=== PATIENT | female | born 1975 | race Caucasian/White ===

== ENCOUNTER 2018-12-13 13:52 | Emergency (ER) | payer MEDICAID ==
[~2018-12-13] VITALS: Ht 162.6 cm; Wt 113.6 kg
[2018-12-13 13:55] VITALS: Ht 162.6 cm; Wt 113.6 kg
[2018-12-13] MEDS ORDERED: ULTRAM50 MG PO (14:26)
[2018-12-13] MEDS ORDERED: CYCLOBENZAPRINE10 MG PO (14:26)
[2018-12-13 14:39] VITALS: BP 102/56
== END 2018-12-13 14:39 | disposition home or self-care (01) ==
LOC: D.ER 13:52
DX: M79.18 Myalgia, other site (principal); V49.9XXA Car occupant (driver) (passenger) injured in unspecified traffic accident, initial encounter; E78.5 Hyperlipidemia, unspecified; F32.9 Major depressive disorder, single episode, unspecified

== ENCOUNTER 2019-01-23 08:38 | Emergency (ER) | payer MEDICAID ==
[~2019-01-23] VITALS: Ht 162.6 cm; Wt 117.7 kg
[~2019-01-23 08:38] MED LIST: CYCLOBENZAPRINE10 MG PO; ULTRAM50 MG PO
[2019-01-23 08:42] VITALS: Ht 162.6 cm; Wt 117.7 kg
[2019-01-23] MEDS ORDERED: FLUTICASONE PRO16 GM NASAL (09:27)
[2019-01-23] MEDS ORDERED: AUGMENTIN 875-11 TAB PO (09:27)
[2019-01-23 09:57] VITALS: BP 106/60
== END 2019-01-23 09:47 | disposition home or self-care (01) ==
LOC: D.ER 08:38
DX: J01.90 Acute sinusitis, unspecified (principal)

== ENCOUNTER 2019-01-31 19:06 | Emergency (ER) | payer OTHER ==
[~2019-01-31] VITALS: Ht 162.6 cm; Wt 117.7 kg
[~2019-01-31 19:06] MED LIST changes: +AUGMENTIN 875-11 TAB PO; +FLUTICASONE PRO16 GM NASAL
[2019-01-31 19:13] VITALS: Ht 162.6 cm; Wt 117.7 kg
[2019-01-31] MEDS ORDERED: LAMICTAL200 M1 PO (19:16)
[2019-01-31] MEDS ORDERED: MOBIC7.5 MG PO (19:16)
[2019-01-31] MEDS ORDERED: LATUDA80 MG PO (19:17)
[2019-01-31] MEDS ORDERED: TEMAZEPAM30 MG PO (19:17)
[2019-01-31 19:46] LABS: APPEARANCE CLEAR (CLEAR); BILIRUBIN NEGATIVE (NEGATIVE); COLOR STRAW (YELLOW); GLUCOSE NEGATIVE (NEGATIVE); KETONE NEGATIVE (NEGATIVE); NITRITE NEGATIVE (NEGATIVE); PROTEIN NEGATIVE (NEGATIVE); SPECIFIC GRAVITY 1.005 (1.005-1.020); UROBILINOGEN NORMAL (NORMAL)
[2019-01-31 19:47] LABS: HCG URINE NEGATIVE (NEGATIVE)
[2019-01-31 19:52] LABS: BASOPHILS 0.1 % (0-2); EOSINOPHILS 1.3 % (0-7); HEMATOCRIT 35.5 % (36.0-48.0); HEMOGLOBIN 11.5 g/dL (12-16); LYMPHOCYTES 31.6 % (15-50); MCH 27.9 pg (26.0-34.0); MCHC 32.4 g/dL (31.0-37.0); MCV 86.2 fL (80.0-100.0); MEAN PLATELET VOLUME 8.3 fL (7.4-10.4); MONOCYTES 6.4 % (2-11); NEUTROPHILS 59.6 % (40-80); RBC 4.12 10x6/uL (4.00-5.40); RDW 13.5 % (11.5-14.5); WBC 8.3 10x3/uL (4.8-10.8)
[2019-01-31 19:56] LABS: CALC OSMOLALITY 277 mosm/kg (275-300); CALCIUM 8.8 mg/dL (8.5-10.1); CARBON DIOXIDE 24.5 mmol/L (21.0-32.0); CHLORIDE - SERUM 105 mmol/L (98-107); CREATININE - SERUM 0.8 mg/dL (0.6-1.3); GLUCOSE 109 mg/dL (74-106); POTASSIUM - SERUM 4.1 mmol/L (3.5-5.1); SODIUM 140 mmol/L (136-145); UREA NITROGEN 8 mg/dL (7-18); eGFR NON AFRICAN AMERICAN 83 mL/min (90-120)
[2019-01-31 20:02] LABS: ALBUMIN 3.1 g/dL (3.4-5.0); ALKALINE PHOSPHATASE 92 U/L (46-116); ALT (SGPT) 36 U/L (10-68); BILIRUBIN - TOTAL 0.19 mg/dL (0.2-1.3); PROTEIN - SERUM 7.2 g/dL (6.4-8.2)
[2019-01-31 20:07] LABS: PLATELET COUNT 367 10x3/uL (130-400)
--- NOTE | 2019-01-31 20:12 | NUR ---
PATIENT IN ROOM 13, FOR HAVING CHILLS, PATIENT IS NOT SUIDIDAL, HER ONE AND ONLY ATTEMPT WAS WHEN SHE WAS IN HIGH SCHOOL. SHE IS NOT SUICIDAL. SHE CAN LIST REASONS FOR LIVING. RESOURCES GIVEN TO HER, SUICIDE PREVENTION LIST GIVEN TO PATIENT.
[2019-01-31] MEDS ORDERED: GUAIFENESI100 MG/5 M PO (20:51)
[2019-01-31] MEDS ORDERED: ALBUTEROL SULF8.5 GM INH (20:51)
[2019-01-31 21:35] VITALS: BP 122/62
== END 2019-01-31 21:35 | disposition home or self-care (01) ==
LOC: D.ER 19:06
PROVIDERS: Emergency Medicine
DX: R68.83 Chills (without fever) (principal); M79.10 Myalgia, unspecified site; F31.9 Bipolar disorder, unspecified; F84.0 Autistic disorder

== ENCOUNTER 2019-03-13 06:40 | Day surgery (SDC) | payer OTHER ==
[2019-03-12 09:00] LABS: BASOPHILS 0 % (0-2); HEMATOCRIT 38.7 % (36.0-48.0); HEMOGLOBIN 12.6 g/dL (12-16); IMMATURE GRANULOCYTES 0.8 % (0-5); LYMPHOCYTES 26.4 % (15-50); MCH 27.7 pg (26.0-34.0); MCHC 32.6 g/dL (31.0-37.0); MCV 85.1 fL (80.0-100.0); MEAN PLATELET VOLUME 8.9 fL (7.4-10.4); MONOCYTES 4.5 % (2-11); NEUTROPHILS 66.3 % (40-80); PLATELET COUNT 241 10x3/uL (130-400); RBC 4.55 10x6/uL (4.00-5.40); RDW 13.9 % (11.5-14.5); WBC 6.6 10x3/uL (4.8-10.8)
[~2019-03-13] VITALS: Ht 162.6 cm; Wt 111.6 kg
[~2019-03-13 06:40] MED LIST changes: +ALBUTEROL SULF8.5 GM INH; +GUAIFENESI100 MG/5 M PO; +LAMICTAL200 M1 PO; +LATUDA80 MG PO; +MOBIC7.5 MG PO; +TEMAZEPAM30 MG PO
[2019-03-13 07:34] VITALS: BP 106/59; Ht 162.6 cm; Wt 111.6 kg
--- NOTE | 2019-03-13 12:13 | NUR ---
1032-REC'D FROM RR. AWAKE AND ALERT.DENIES PAIN.VSS.ABD SOFT NON DISTENDED. IV PATENT AT [facility] TO RIGHT WRIST.CL IN EASY REACH.SISTER AT BEDSIDE.REVIEWED DISCHARGE CRITERIA.VERBALIZED UNDERSTANDING.
--- NOTE | 2019-03-13 12:14 | NUR ---
1100-VSS.FULL LIQUID TRAY TO ROOM.REPORTS PAIN 2/10 TO ABD,DESCRIBES CRAMPING. CL IN EASY REACH
--- NOTE | 2019-03-13 12:15 | NUR ---
1130-DISCHARGE CRITERIA MET. REMOVED IV FROM RIGHT WRIST WITH CATH INTACT.DISPOSED INTO SHARPS,COVERED SITE WITH GUAZE,SECURED WITH MEDIPORE TAPE. IS CALLING SISTER FOR HER TO PICK HER UP
--- NOTE | 2019-03-13 12:16 | NUR ---
1135-REVIEWED POST OPERATIVE INSTRUCTIONS AND FOLLOW UP APPOINTMENT.VERBALIZED UNDERSTANDING. WAITING ON SISTER FOR HER RIDE HOME.VSS.
--- NOTE | 2019-03-13 12:17 | NUR ---
1200-ESCORTED OUT VIA W/C WITH SISTER AWAITING TO DRIVE HOME. DISCHARGE PAPERWORK IN HAND
--- NOTE | 2019-03-23 15:42 | OP ---
PATIENT NAME: VIVIANE JIM MEDICAL RECORD: [id number] :77 LOCATION:D.OPS ADMISSION DATE: SURGEON: NIKITA GARDUNO MD DATE OF OPERATION: 03/13/2019 PREOPERATIVE DIAGNOSES: 1. Amenorrhea. 2. Thickened endometrium by ultrasound. POSTOPERATIVE DIAGNOSES: 1. Amenorrhea. 2. Thickened endometrium by ultrasound. PROCEDURE: Hysteroscopy, dilation and curettage. SURGEON: Nikita Garduno MD ANESTHESIA: General endotracheal. INTRAVENOUS FLUIDS: Per anesthesia records. HYSTEROSCOPIC FLUID LOSS: Less than 100 cc of 0.9 normal saline. FINDINGS: Grossly external genitalia, vagina, and endometrial canal. SPECIMENS: Include endometrial curettings. ESTIMATED BLOOD LOSS: Minimal. COMPLICATIONS: None apparent. PROCEDURE IN DETAIL: The patient was taken to the operating room where general anesthesia was achieved without difficulty. The patient was then prepped and draped in normal sterile fashion in the dorsal lithotomy position in the [facility]. The vagina was prepped and draped, and the bladder was drained of approximately 150 cc of clear yellow urine. A Graves speculum was then placed in the vagina and cervix was identified and grasped on its anterior lip with a single-tooth tenaculum. At this point, the patient was dilated to approximately 4-5 mm and the hysteroscope was introduced into the cervix without resistance. The endometrial canal was then thoroughly surveyed and a #1 curette was used to perform 4 quadrants curettage for tissue sampling. Minimal bleeding was noted from the cervical os following the curettage and a single-tooth tenaculum was removed. The patient tolerated procedure well, transferred to postanesthesia recovery stable without incident. TRANSINT:[id number] Voice Confirmation ID: [id number] DOCUMENT ID: [id number] OPERATIVE REPORT [id number] VIVIANE JIM NIKITA GARDUNO MD at 1542 CC: [id number] DICTATION DATE: 03/23/19 0734 REHAB MANAGER: 03/23/[address] [facility] 03/13/19 [place] [address]
== END 2019-03-13 12:00 | disposition home or self-care (01) ==
LOC: D.OPS 06:40 → D.PAN 09:00 → D.OPS 10:30
PROVIDERS: ATTEND Obstetrics & Gynecology
DX: N91.2 Amenorrhea, unspecified (principal); R93.89 Abnormal findings on diagnostic imaging of other specified body structures

== ENCOUNTER 2019-04-02 05:15 | Day surgery (SDC) | payer OTHER ==
[2019-03-31 11:08] LABS: BASOPHILS 0.1 % (0-2); EOSINOPHILS 1.5 % (0-7); HEMATOCRIT 38.6 % (36.0-48.0); HEMOGLOBIN 12.8 g/dL (12-16); IMMATURE GRANULOCYTES 0.8 % (0-5); LYMPHOCYTES 30.5 % (15-50); MCH 28.1 pg (26.0-34.0); MCHC 33.2 g/dL (31.0-37.0); MCV 84.6 fL (80.0-100.0); MEAN PLATELET VOLUME 9.1 fL (7.4-10.4); MONOCYTES 7.5 % (2-11); NEUTROPHILS 59.6 % (40-80); PLATELET COUNT 251 10x3/uL (130-400); RBC 4.56 10x6/uL (4.00-5.40); RDW 13.5 % (11.5-14.5); WBC 7.8 10x3/uL (4.8-10.8)
[~2019-04-02] VITALS: Ht 162.6 cm; Wt 109.3 kg
--- NOTE | ~2019-04-02 | OP ---
PATIENT NAME: VIVIANE DRIVER MEDICAL RECORD: [id number] :77 LOCATION:D.[facility] ADMISSION DATE: SURGEON: NIKITA GARDUNO MD DATE OF OPERATION: 04/02/2019 PREOPERATIVE DIAGNOSIS: Menorrhagia. POSTOPERATIVE DIAGNOSIS: Menorrhagia. PROCEDURE: NovaSure endometrial ablation. SURGEON: Nikita Garduno MD ANESTHESIA: General endotracheal. INTRAVENOUS FLUIDS: Per anesthesia records. ESTIMATED BLOOD LOSS: Minimal. SPECIMENS: None. COMPLICATIONS: None apparent. FINDINGS: Grossly normal appearing external genitalia and cervix. PROCEDURE IN DETAIL: The patient was taken to the operating room where general anesthesia was achieved without difficulty. The patient was then prepped and draped in normal sterile fashion in the dorsal lithotomy position in the [facility]. At this point, the patient was prepped and draped and the bladder was drained of approximately 100 cc of clear yellow urine. At this point, a Graves speculum was placed into the vagina and a single tooth tenaculum was placed on the anterior lip of the cervix. The uterus was sounded to approximately 8.5 to 9 cm and the cervix was determined to be approximately 3.5 cm long. At this point, the patient was dilated using Hegar dilators to approximately 8 mm. At this point, the NovaSure endometrial device was calibrated and placed into the uterus. The uterine fundus was palpated gently and the device was withdrawn approximately 1 cm. The device was then deployed per NovaSure protocol. Following deployment, the cervical collar was slid to create Angio-Seal and the vacuum precheck was correct as well as the pressurization check. At this point, with the machine enabled, a complete approximately 61 second cycle was performed. The device was then unlocked and using the bow and arrow method, the NovaSure ablative device was then removed from the patient's uterus. No bleeding was noted from the cervical os; however, a small bleeding was noted from the tenaculum site, which was repaired with a 2-0 Vicryl suture in a [id number] fashion. Good hemostasis noted. The patient tolerated procedure well, transferred to the postanesthesia recovery stable without incident. TRANSINT:[id number] Voice Confirmation ID: [id number] DOCUMENT ID: [id number] OPERATIVE REPORT [id number] VIVIANE DRIVER NIKITA GARDUNO MD CC: [id number] DICTATION DATE: 04/16/19 1532 TICKER WIRER: 04/16/19 1855 [facility] [place] 04/02/19 [place] [id number] [place] [id number]
[2019-04-02 06:00] VITALS: BP 98/62; Ht 162.6 cm; Wt 109.3 kg
[2019-04-02 07:22] LABS: HCG URINE NEGATIVE (NEGATIVE)
--- NOTE | 2019-04-02 08:45 | NUR ---
LINDSEY # TIME: 0.54 WIDTH-106 CAVITY WIDTH-3.5 CAVITY LENTH-5.5
--- NOTE | 2019-04-02 09:16 | NUR ---
0900-RECD FROM PACU. ALERT. IV PATENT. DENIES PAIN/NAUSEA. FULL LIQUIDS SERVED.
--- NOTE | 2019-04-02 10:07 | NUR ---
0945-COMPLAINS OF PAIN/CRAMPING RATED 9. 1000-NORCO 5MG GIVEN FOR RELIEF OF PAIN.
--- NOTE | 2019-04-02 10:32 | NUR ---
1000 IV REMOVED AT 1030. PAIN EASING SOME. VOIDED IN BATHROOM. INSTRUCTIONS GIVEN.
--- NOTE | 2019-04-02 10:44 | NUR ---
1000 IV REMOVED AND PRESSURE HELD.INSTRUCTIONS GIVEN.
== END 2019-04-02 10:45 | disposition home or self-care (01) ==
LOC: D.OPS 05:15 → D.PAN 12:00
PROVIDERS: ATTEND Obstetrics & Gynecology
DX: N92.0 Excessive and frequent menstruation with regular cycle (principal); Z09 Encounter for follow-up examination after completed treatment for conditions other than malignant neoplasm

== ENCOUNTER 2019-08-27 20:26 | Emergency (ER) | payer OTHER ==
[~2019-08-27] VITALS: Ht 162.6 cm; Wt 97.5 kg
[2019-08-27 21:05] LABS: BASOPHILS 0.2 % (0-2); EOSINOPHILS 1.4 % (0-7); HEMATOCRIT 43.2 % (36.0-48.0); IMMATURE GRANULOCYTES 1.4 % (0-5); LYMPHOCYTES 24.1 % (15-50); MCH 28.5 pg (26.0-34.0); MCHC 32.4 g/dL (31.0-37.0); MEAN PLATELET VOLUME 9.3 fL (7.4-10.4); MONOCYTES 8.5 % (2-11); NEUTROPHILS 64.4 % (40-80); RBC 4.91 10x6/uL (4.00-5.40); RDW 12.9 % (11.5-14.5); WBC 6.6 10x3/uL (4.8-10.8)
[2019-08-27 21:09] VITALS: Ht 162.6 cm; Wt 97.5 kg
[2019-08-27 21:10] LABS: PLATELET COUNT 192 10x3/uL (130-400)
[2019-08-27 21:13] LABS: ANION GAP 11.6 mmol/L (8-16); CALCIUM 9.4 mg/dL (8.5-10.1); CREATININE - SERUM 1.1 mg/dL (0.6-1.3); POTASSIUM - SERUM 3.6 mmol/L (3.5-5.1)
[2019-08-27 21:19] LABS: ALBUMIN 3.9 g/dL (3.4-5.0); BILIRUBIN - TOTAL 0.56 mg/dL (0.2-1.3); MAGNESIUM - SERUM 2.1 mg/dL (1.8-2.4)
--- NOTE | 2019-08-27 21:34 | NUR ---
PATIENT IN ER 20. SHE STATES THAT SHE IS HERE TO GET HER MEDS STRAIGHTENED OUT AND SHE DENIES SUICIDIAL IDEATIONS AT THIS TIME. SHE BELIEVES THAT SUICIDE IS IMMORAL AND DOES NOT WANT TO HARM HERSELF AT THIS TIME. A 1-800 NUMBER GIVEN TO HER FOR FUTURE REFERENCE.
[2019-08-27 22:05] LABS: BILIRUBIN NEGATIVE (NEGATIVE); GLUCOSE NEGATIVE (NEGATIVE); HCG URINE NEGATIVE (NEGATIVE); KETONE NEGATIVE (NEGATIVE); NITRITE POSITIVE (NEGATIVE); UROBILINOGEN NORMAL (NORMAL)
[2019-08-27 22:07] LABS: BACTERIA MANY /hpf (NEGATIVE); RED CELLS - URINE 0-5 /hpf (0-5); WHITE CELLS - URINE 25-50 /hpf (NEGATIVE)
[2019-08-27 22:14] LABS: UDS - AMPHET NEGATIVE QUAL (NEGATIVE); UDS - BARB NEGATIVE QUAL (NEGATIVE); UDS - BENZO NEGATIVE QUAL (NEGATIVE); UDS - COCAINE NEGATIVE QUAL (NEGATIVE); UDS - OPIATE NEGATIVE QUAL (NEGATIVE); UDS - PCP NEGATIVE QUAL (NEGATIVE); UDS - THC NEGATIVE QUAL (NEGATIVE)
[2019-08-28 07:03] VITALS: BP 136/81
== END 2019-08-28 07:06 ==
LOC: D.ER 20:26
PROVIDERS: Family Medicine
DX: F31.89 Other bipolar disorder (principal); N39.0 Urinary tract infection, site not specified; R45.1 Restlessness and agitation

== ENCOUNTER 2019-11-27 21:28 | Emergency (ER) | payer OTHER ==
[~2019-11-27] VITALS: Ht 162.6 cm; Wt 81.8 kg
[2019-11-27 21:36] VITALS: Ht 162.6 cm; Wt 81.8 kg
[2019-11-27 22:09] LABS: BASOPHILS 0.2 % (0-2); EOSINOPHILS 0.9 % (0-7); HEMATOCRIT 40.3 % (36.0-48.0); HEMOGLOBIN 13.6 g/dL (12-16); LYMPHOCYTES 26.1 % (15-50); MCH 28.7 pg (26.0-34.0); MCHC 33.7 g/dL (31.0-37.0); MEAN PLATELET VOLUME 9.9 fL (7.4-10.4); MONOCYTES 6.5 % (2-11); NEUTROPHILS 65.3 % (40-80); PLATELET COUNT 175 10x3/uL (130-400); RBC 4.74 10x6/uL (4.00-5.40); RDW 12.9 % (11.5-14.5)
[2019-11-27 22:12] LABS: ANION GAP 16.8 mmol/L (8-16); CALCIUM 9.1 mg/dL (8.5-10.1); CARBON DIOXIDE 22.4 mmol/L (21.0-32.0); CREATININE - SERUM 0.9 mg/dL (0.6-1.3); POTASSIUM - SERUM 4.2 mmol/L (3.5-5.1)
[2019-11-27 22:18] LABS: ALBUMIN 3.7 g/dL (3.4-5.0); BILIRUBIN - TOTAL 0.36 mg/dL (0.2-1.3); MAGNESIUM - SERUM 2.1 mg/dL (1.8-2.4); PROTEIN - SERUM 7.7 g/dL (6.4-8.2); VALPROIC ACID (DEPAKOTE) 3.3 ug/mL (50.0-100.0)
[2019-11-27 22:54] LABS: UDS - AMPHET NEGATIVE QUAL (NEGATIVE); UDS - BARB NEGATIVE QUAL (NEGATIVE); UDS - BENZO NEGATIVE QUAL (NEGATIVE); UDS - COCAINE NEGATIVE QUAL (NEGATIVE); UDS - OPIATE NEGATIVE QUAL (NEGATIVE); UDS - PCP NEGATIVE QUAL (NEGATIVE); UDS - THC NEGATIVE QUAL (NEGATIVE)
[2019-11-27 22:58] LABS: AMORPHOUS SEDIMENT >1+ /lpf (NONE SEEN); BILIRUBIN NEGATIVE (NEGATIVE); EPITHELIAL CELLS 0-5 /hpf (0-5); KETONE NEGATIVE (NEGATIVE); NITRITE NEGATIVE (NEGATIVE); UROBILINOGEN NORMAL mg/dL (< 2)
[2019-11-28 01:53] VITALS: BP 120/79
--- NOTE | 2019-11-28 06:31 | NUR ---
DR. OLSEN NOTIFIED AND REVIEWED PT'S BEHAVIOR AND ASSESSMENTS RESULTS. PT IS A LOW RISK PER DR. OLSEN. DR. OLSEN STATED AND GIVE RESOURCES TO PT AT TIME OF DISCHARGE. NO FURTHER ORDERS AT THIS TIME. RESOURCES REVIEWE WITH PT AND SHE VERBALIZED UNDERSTANDING.
== END 2019-11-28 08:44 ==
LOC: D.ER 21:28
PROVIDERS: Family Medicine
DX: R45.851 Suicidal ideations (principal); F31.9 Bipolar disorder, unspecified; Z91.14 Patient's other noncompliance with medication regimen